=== PATIENT | female | born 1970 | race Caucasian/White ===

== ENCOUNTER → 2016-05-28 | Outpatient (REF) | payer OTHER ==
[~2016-05-28] MED LIST: ALBU17IN INH; ALLE10TA PO; ALLE25CA8 PO; CARA1TAB2 PO; OMEP40CA2 PO
== END ==
LOC: M SFHCCLAY 11:01
PROVIDERS: ATTEND Family Medicine
DX: L81.4 Other melanin hyperpigmentation (principal)

== ENCOUNTER → 2017-01-05 | Outpatient (CLI) | payer OTHER ==
[~2017-01-05] MED LIST changes: -CARA1TAB2 PO; +CARA1TAB6 PO
--- NOTE | 2017-01-05 09:40 | REP ---
BILATERAL FIRST DIGITS: Four views of bilateral first digits performed. There is no evidence of acute fracture, dislocation or intrinsic bone disease. Joint spaces appear unremarkable. IMPRESSION: Negative exam bilateral first digits. Signed by Farhan Mccarty MD 01/05/2017 05:08 P
== END ==
LOC: M WUC 08:31
PROVIDERS: ATTEND Physician Assistant
DX: S63.602A Unspecified sprain of left thumb, initial encounter (principal); S63.601A Unspecified sprain of right thumb, initial encounter; X58.XXXA Exposure to other specified factors, initial encounter; Y92.89 Other specified places as the place of occurrence of the external cause; Y93.89 Activity, other specified; Y99.8 Other external cause status

== ENCOUNTER → 2017-06-15 | Outpatient (CLI) | payer OTHER | LOC: M WUC 09:04 | DX: M54.5 Low back pain (principal) | CPT/HCPCS: 72110 ==

== ENCOUNTER 2017-06-30 09:03 | Emergency (ER) | payer OTHER | END 2017-06-30 11:03 | disposition home or self-care (01) | LOC: M ED 09:03 | DX: R11.2 Nausea with vomiting, unspecified (principal); R19.7 Diarrhea, unspecified; K21.9 Gastro-esophageal reflux disease without esophagitis; Z79.899 Other long term (current) drug therapy; Z98.890 Other specified postprocedural states | CPT/HCPCS: 74021 ==

== ENCOUNTER → 2017-10-13 | Outpatient (CLI) | payer BC ==
[2017-10-13 16:31] LABS: BASO # 0.1 10^3/uL (0.0-0.2); BASO % 0.7 % (0.0-1.0); EOS # 0.6 10^3/uL (0.0-0.50); EOS % 8.5 % (0.0-3.0); HEMOGLOBIN 13.2 g/dl (12.0-15.5); IMMATURE GRANULOCYTE % 0.1 % (0-3.0); LYMPH # 2.5 10^3/uL (1.5-4.5); LYMPH % 36.9 % (24.0-44.0); MEAN CORPUSCULAR HEMOGLOBIN 29.1 pg (27.0-33.0); MEAN CORPUSCULAR VOLUME 88.1 fl (80.0-96.0); MONO # 0.6 10^3/uL (0.0-0.8); MONO % 9.1 % (0.0-5.0); NEUTROPHILS % 44.7 % (36.0-66.0); PLATELET COUNT, AUTOMATED 250 10^3/uL (150-450); RED BLOOD COUNT 4.54 10^6/uL (4.00-5.40); RED CELL DISTRIBUTION WIDTH 12.5 % (11.5-14.5); WHITE BLOOD COUNT 6.7 10^3/uL (4.0-10.0)
[2017-10-13 17:06] LABS: ALBUMIN 4.1 GM/DL (3.2-5.2); ALBUMIN/GLOBULIN RATIO 1.24 (1.00-1.93); ALKALINE PHOSPHATASE 75 U/L (45-117); ALT/SGPT 33 U/L (12-78); ANION GAP 6 MEQ/L (8-16); AST/SGOT 20 U/L (7-37); BILIRUBIN,TOTAL 0.7 MG/DL (0.2-1.0); BLOOD UREA NITROGEN 16 MG/DL (7-18); CALCIUM LEVEL 9.5 MG/DL (8.5-10.1); CARBON DIOXIDE LEVEL 29 MEQ/L (21-32); CHLORIDE LEVEL 107 MEQ/L (98-107); CREATININE FOR GFR 0.83 MG/DL (0.55-1.30); FREE T4 0.98 NG/DL (0.76-1.46); GLOMERULAR FILTRATION RATE > 60.0 (>58); GLUCOSE, FASTING 89 MG/DL (70-100); SODIUM LEVEL 142 MEQ/L (136-145); TOTAL PROTEIN 7.4 GM/DL (6.4-8.2)
[2017-10-13 17:08] LABS: POTASSIUM SERUM 5.2 MEQ/L (3.5-5.1)
== END ==
LOC: M WUC 13:42
DX: R53.83 Other fatigue (principal)

== ENCOUNTER 2017-12-03 16:38 | Emergency (ER) | payer BC ==
[2017-12-03 17:19] LABS: BASO % 0.7 % (0.0-1.0); EOS # 0.2 10^3/uL (0.0-0.50); EOS % 3.6 % (0.0-3.0); HEMATOCRIT 41.5 % (36.0-47.0); HEMOGLOBIN 13.8 g/dl (12.0-15.5); IMMATURE GRANULOCYTE % 0.2 % (0-3.0); MEAN CORPUSCULAR HEMOGLOBIN 28.5 pg (27.0-33.0); MEAN CORPUSCULAR HGB CONC 33.3 g/dl (32.0-36.5); MEAN CORPUSCULAR VOLUME 85.7 fl (80.0-96.0); MONO # 0.4 10^3/uL (0.0-0.8); MONO % 7.3 % (0.0-5.0); NEUTROPHILS # 3.2 10^3/uL (1.8-7.7); NEUTROPHILS % 54.2 % (36.0-66.0); PLATELET COUNT, AUTOMATED 223 10^3/uL (150-450); RED BLOOD COUNT 4.84 10^6/uL (4.00-5.40); RED CELL DISTRIBUTION WIDTH 12.7 % (11.5-14.5); WHITE BLOOD COUNT 5.9 10^3/uL (4.0-10.0)
[2017-12-03 17:25] LABS: ALBUMIN 3.8 GM/DL (3.2-5.2); ALBUMIN/GLOBULIN RATIO 1.03 (1.00-1.93); ALKALINE PHOSPHATASE 88 U/L (45-117); ALT/SGPT 43 U/L (12-78); ANION GAP 11 MEQ/L (8-16); AST/SGOT 65 U/L (7-37); BILIRUBIN,DIRECT 0.3 MG/DL (0.0-0.2); BLOOD UREA NITROGEN 16 MG/DL (7-18); CALCIUM LEVEL 8.8 MG/DL (8.5-10.1); CARBON DIOXIDE LEVEL 24 MEQ/L (21-32); CHLORIDE LEVEL 104 MEQ/L (98-107); CREATININE FOR GFR 0.76 MG/DL (0.55-1.30); GLOMERULAR FILTRATION RATE > 60.0 (>58); GLUCOSE, FASTING 85 MG/DL (70-100); LIPASE 342 U/L (73-393); POTASSIUM SERUM 3.2 MEQ/L (3.5-5.1); SODIUM LEVEL 139 MEQ/L (136-145); TOTAL PROTEIN 7.5 GM/DL (6.4-8.2)
[2017-12-03 17:39] LABS: KETONE, URINE AUTO RFX NEGATIVE (NEGATIVE); LEUKOCYTE ESTERASE UR AUTO RFX NEGATIVE (NEGATIVE); MUCUS, URINE RFX SMALL (NEGATIVE); NITRITE, URINE AUTO RFX NEGATIVE (NEGATIVE); RBC, URINE AUTO RFX 0 /HPF (0-3); SPECIFIC GRAVITY UR AUTO RFX 1.006 (1.002-1.035); SQUAM EPITHELIAL CELL UR AURFX 0 /HPF (0-6); WBC, URINE AUTO RFX 0 /HPF (0-3)
[2017-12-03] MEDS ORDERED: ISOVUE-370 76% 100ML VIAL (Q9967) As Ordered (17:40)
[2017-12-03 17:46] LABS: CK-MB VALUE MASS 1.6 NG/ML (<3.6); CPK CREATINE PHOSPHOKINASE 97 U/L (26-192); MB/CK RELATIVE INDEX 1.64 (< OR =4); TROPONIN I < 0.02 NG/ML (< 0.10)
[2017-12-03] MEDS: POTASSIUM CHLORIDE 10 MEQ SR TABLET PO (18:08)
[2017-12-03] MEDS: GASTROGRAFIN SOLUTION 30ML PO ×2 (18:08→18:45)
[2017-12-03] MEDS: ONDANSETRON 4MG/2ML VIAL (J2405) IV (18:45)
== END 2017-12-03 20:26 | disposition home or self-care (01) ==
LOC: M ED 16:38
DX: R10.9 Unspecified abdominal pain (principal); M19.90 Unspecified osteoarthritis, unspecified site; R05 Cough; Z87.891 Personal history of nicotine dependence; Z79.899 Other long term (current) drug therapy
CPT/HCPCS: Q9963

== ENCOUNTER → 2017-12-15 | Outpatient (REF) | payer BC, MEDICAID ==
[2017-12-16 12:31] LABS: CONTROL LINE HPYORI INT CTR LINE PRESENT; H PYLORI QUALITATIVE IgG NEGATIVE (NEGATIVE)
== END ==
LOC: M SFHCCLAY 15:22
DX: R10.13 Epigastric pain (principal)
CPT/HCPCS: 86677

== ENCOUNTER → 2017-12-22 | Outpatient (CLI) | payer BC, MEDICAID | LOC: M RAD 08:04 | DX: K80.51 Calculus of bile duct without cholangitis or cholecystitis with obstruction (principal); R10.13 Epigastric pain; Z90.49 Acquired absence of other specified parts of digestive tract | CPT/HCPCS: A9537 ==

== ENCOUNTER → 2017-12-23 | Outpatient (CLI) | payer BC, MEDICAID | LOC: M RAD 08:48 | DX: K80.50 Calculus of bile duct without cholangitis or cholecystitis without obstruction (principal) | CPT/HCPCS: 74181 ==

== ENCOUNTER 2018-01-04 08:16 | Outpatient (REF) | payer MEDICAID | END 2018-01-05 | LOC: M SFHCCLAY 08:16 | DX: K80.20 Calculus of gallbladder without cholecystitis without obstruction (principal) ==

== ENCOUNTER → 2018-02-08 | Outpatient (CLI) | payer BC, MEDICAID | LOC: M WUC 15:18 | DX: M25.521 Pain in right elbow (principal) | CPT/HCPCS: 73080 ==

== ENCOUNTER → 2018-10-17 | Outpatient (CLI) | payer BC, MEDICAID ==
[~2018-10-17] MED LIST changes: +SING10TA32 PO; +ZYRT10CA PO
--- NOTE | 2018-10-17 15:21 | REP ---
Clinical: Cough and shortness of breath . Comparison: 06/30/2017 . Technique: PA and lateral. Findings: The mediastinum and cardiac silhouette are normal. Surgical clips at the right suprahilar region remains stable along with suspected postsurgical changes involving the medial right upper lung zone. The lung ventura are without acute consolidation, effusion, or pneumothorax. The skeletal structures are intact and normal. Impression: 1. No acute cardiopulmonary process. 2. Stable postsurgical changes involving the right hemithorax.
== END ==
LOC: M CLY 14:45
PROVIDERS: ATTEND Family Medicine
DX: R06.02 Shortness of breath (principal); R05 Cough

== ENCOUNTER 2018-12-22 20:22 | Emergency (ER) | payer BC, MEDICAID ==
[~2018-12-22] VITALS: Ht 162.6 cm; Wt 82.9 kg
[2018-12-22] MEDS ORDERED: TOPI25TA10 (20:32)
[2018-12-22] MEDS ORDERED: MONT10TA2 (20:32)
[2018-12-22] MEDS ORDERED: VENTAER (20:32)
[2018-12-22 23:00] VITALS: BP 102/64
[2018-12-22] MEDS ORDERED: valACYclovir HCL 500 MG TAB PO ONE (23:15)
[2018-12-22] MEDS ORDERED: VALA1TAB2 PO (23:16)
[2018-12-22] MEDS ORDERED: NAPR-885 PO (23:17)
== END 2018-12-22 23:41 | disposition home or self-care (01) ==
LOC: M ED 20:22
DX: B02.9 Zoster without complications (principal); J34.0 Abscess, furuncle and carbuncle of nose; J30.2 Other seasonal allergic rhinitis; Z79.899 Other long term (current) drug therapy

== ENCOUNTER → 2019-01-09 | Outpatient (CLI) | payer BC ==
[~2019-01-09] MED LIST changes: +MONT10TA2; +NAPR-885 PO; +TOPI25TA10; +VALA1TAB2 PO; +VENTAER
--- NOTE | 2019-01-09 09:51 | REP ---
Right foot four views : There is no fracture or dislocation. Mineralization and joint spaces are normal. There are no calcifications or foreign bodies. The base of the fifth digit metacarpal is unremarkable. There is a calcaneal plantar are spur. Impression: The base of the fifth digit metacarpal is unremarkable. There is a calcaneal plantar spur. Otherwise, negative right foot . Electronically Signed by Frahan Fam MD 01/09/2019 09:43 A
== END ==
LOC: M CLY 08:33
PROVIDERS: ATTEND Family Medicine
DX: M77.9 Enthesopathy, unspecified (principal)

== ENCOUNTER → 2019-05-31 | Outpatient (CLI) | payer BC, MEDICAID ==
[~2019-05-31] MED LIST changes: -ALLE10TA PO; -OMEP40CA2 PO; +OMEP40CA97 PO; -VALA1TAB2 PO; +VALA1TAB64 PO; +[UNRECOGNIZED DRUG - CODE] PO
--- NOTE | 2019-05-31 14:43 | REPMRS ---
Patient History The patient states she has not had a clinical breast exam in over a year. Patient is postmenopausal. Family history of breast cancer in maternal uncle, colorectal cancer in maternal uncle. Digital Woman Screen Mammo: May 31, 2019 - Exam #: [id number] Bilateral CC and MLO view(s) were taken. Technologist: Rosy Pedraza, Technologist Prior study comparison: January 10, 2009, bilateral mammogram, performed at [facility]. FINDINGS: The breast tissue is heterogeneously dense. This may lower the sensitivity of mammography. There is a moderate amount of heterogeneously dense fibroglandular tissue which is fairly symmetric. There is no interval development of dominant mass, architectural distortion, or grouped microcalcification typical of malignancy. There has been no change in the appearance of the mammogram from the prior studies. 3-D tomosynthesis shows no additional findings. Assessment: BI-RADS/ACR category 1 mammogram. Negative Mammogram. Recommendation Routine screening mammogram of both breasts in 1 year (for women over age 40). This patient's Lifetime Breast Cancer RIsk is estimated at 8.4 %. This mammogram was interpreted with the aid of an FDA-approved computer-aided dectection system. Electronically Signed By: Humberto Pat MD 05/31/19 0098
== END ==
LOC: M WHC 11:27
PROVIDERS: ATTEND Family Medicine
DX: Z12.31 Encounter for screening mammogram for malignant neoplasm of breast (principal)

== ENCOUNTER → 2019-11-03 | Outpatient (CLI) | payer OTHER ==
[~2019-11-03] MED LIST changes: -MONT10TA2; +MONT10TA4 PO; +OMEP1CAP73 PO; +TOPI50TA9 PO; +VALA1TAB5 PO; -VALA1TAB64 PO
== END ==
LOC: M LABSMTC 09:12
PROVIDERS: ATTEND Anesthesiology
DX: Z03.818 Encounter for observation for suspected exposure to other biological agents ruled out (principal); Z11.59 Encounter for screening for other viral diseases
CPT/HCPCS: C9803; U0003

== ENCOUNTER 2019-11-06 08:35 | Day surgery (SDC) | payer BC, MEDICAID, OTHER ==
[~2019-11-06] VITALS: Ht 162.6 cm; Wt 87.5 kg
[~2019-11-06 08:35] MED LIST changes: +MONT10TA10 PO; -MONT10TA4 PO; +NS 1,000 ML IV ONE
--- NOTE | 2019-11-06 10:48 | ROOR ---
Patient Name: Dorita Mckeon Procedure Date: 11/06/2019 10:27 AM Date of : 1970 Age: 49 Room: [facility] Gender: Female Note Status: Finalized Procedure: Colonoscopy Indications: Suspected irritable bowel syndrome, Irritable bowel syndrome with constipation Providers: Juan AUGUSTIN MD Referring MD: Will Escobar MD Requesting Provider: Medicines: Monitored Anesthesia Care Complications: No immediate complications. Procedure: Pre-Anesthesia Assessment: - The heart rate, respiratory rate, oxygen saturations, blood pressure, adequacy of pulmonary ventilation, and response to care were monitored throughout the procedure. The Colonoscope was introduced through the anus and advanced to 10 cm into the ileum. The colonoscopy was performed without difficulty. The patient tolerated the procedure well. The quality of the bowel preparation was good. Findings: The perianal and digital rectal examinations were normal. The colon (entire examined portion) appeared normal. The terminal ileum appeared normal. Hemorrhoids were found during retroflexion. The hemorrhoids were moderate. Impression: - Internal Hemorrhoids. - The colon is normal. - The terminal ileum is normal. - No specimens collected. Recommendation: - Continue present medications. - Return to referring physician as previously scheduled. Juan Augustin MD Juan AUGUSTIN MD 11/06/2019 10:48:11 AM Electronically signed by Juan AUGUSTIN MD Number of Addenda: 0 Note Initiated On: 11/06/2019 10:27 AM Estimated Blood Loss: Estimated blood loss: none.
[2019-11-06 11:05] VITALS: BP 127/72
== END 2019-11-06 11:29 | disposition home or self-care (01) ==
LOC: M OPP 08:35
PROVIDERS: ATTEND Internal Medicine Gastroenterology
DX: K64.9 Unspecified hemorrhoids (principal); K21.9 Gastro-esophageal reflux disease without esophagitis; K58.1 Irritable bowel syndrome with constipation

== ENCOUNTER → 2019-11-21 | Outpatient (REF) | payer OTHER, MEDICAID ==
[~2019-11-21] MED LIST changes: -MONT10TA10 PO; +MONT10TA4 PO; -NS 1,000 ML IV ONE
[2019-11-21 12:17] LABS: HEMATOCRIT 41.4 % (36.0-47.0); HEMOGLOBIN 13.7 g/dl (12.0-15.5); MEAN CORPUSCULAR HEMOGLOBIN 29.4 pg (27.0-33.0); MEAN CORPUSCULAR HGB CONC 33.1 g/dl (32.0-36.5); MEAN CORPUSCULAR VOLUME 88.8 fl (80.0-96.0); PLATELET COUNT, AUTOMATED 262 10^3/uL (150-450); RED BLOOD COUNT 4.66 10^6/uL (4.00-5.40); WHITE BLOOD COUNT 6.2 10^3/uL (4.0-10.0)
[2019-11-21 12:31] LABS: ALT/SGPT 26 U/L (12-78); BILIRUBIN,TOTAL 0.6 MG/DL (0.2-1.0); BLOOD UREA NITROGEN 25 MG/DL (7-18); CALCIUM LEVEL 9.1 MG/DL (8.5-10.1); CARBON DIOXIDE LEVEL 23 MEQ/L (21-32); CHLORIDE LEVEL 113 MEQ/L (98-107); CHOLESTEROL LEVEL 205 MG/DL (<200); CHOLESTEROL RISK RATIO 3.796 (<5); CREATININE FOR GFR 0.83 MG/DL (0.55-1.30); FREE T4 0.99 NG/DL (0.76-1.46); GLOMERULAR FILTRATION RATE > 60.0 (>51); GLUCOSE, FASTING 95 MG/DL (70-100); HDL CHOLESTEROL 54 MG/DL (>40); LDL CHOLESTEROL 138 MG/DL (<100); NON-HDL-C 151 MG/DL; POTASSIUM SERUM 4.1 MEQ/L (3.5-5.1); SODIUM LEVEL 144 MEQ/L (136-145); TOTAL PROTEIN 6.7 GM/DL (6.4-8.2); TRIGLYCERIDES LEVEL 67 MG/DL (<150)
== END ==
LOC: M SFHCCLAY 08:28
PROVIDERS: ATTEND Family Medicine
DX: R53.82 Chronic fatigue, unspecified (principal); E78.00 Pure hypercholesterolemia, unspecified

== ENCOUNTER → 2019-11-21 | Outpatient (CLI) | payer BC, OTHER ==
--- NOTE | 2019-11-21 09:02 | REP ---
Left hip: Two views. History: Piriformis muscle pain. Findings: AP and frog-leg views of the left hip demonstrate bilateral Essure metallic tubal occlusion devices in the pelvis. Femoral head is smooth and rounded joint spaces preserved. The left hemipelvis appears intact. Periarticular soft tissues are unremarkable. Impression: Status post Essure tubal occlusion. Otherwise negative left hip radiographs. Electronically Signed by Michele Pat MD 11/21/2019 08:53 A
== END ==
LOC: M CLY 08:34
PROVIDERS: ATTEND Family Medicine
DX: M79.18 Myalgia, other site (principal)

== ENCOUNTER → 2020-06-05 | Outpatient (CLI) | payer SELFPAY ==
[~2020-06-05] MED LIST changes: -MONT10TA4 PO; +MONT5TAB2 PO
== END ==
LOC: M LABSMTC 13:11
PROVIDERS: ATTEND Pediatrics
DX: Z20.822 Contact with and (suspected) exposure to COVID-19 (principal)

== ENCOUNTER → 2020-07-29 | Outpatient (REF) | payer MEDICAID, OTHER ==
[~2020-07-29] MED LIST changes: +MONT10TA10 PO; -MONT5TAB2 PO
[2020-07-29 16:23] LABS: BASO % 0.6 % (0.0-1.0); EOS # 0.3 10^3/uL (0.0-0.5); EOS % 4.7 % (0.0-3.0); HEMATOCRIT 41.2 % (36.0-47.0); HEMOGLOBIN 13.2 g/dl (12.0-15.5); LYMPH # 2.5 10^3/uL (1.5-5.0); LYMPH % 34.5 % (24.0-44.0); MEAN CORPUSCULAR HEMOGLOBIN 28.5 pg (27.0-33.0); MONO # 0.5 10^3/uL (0.0-0.8); MONO % 7.3 % (2.0-8.0); NEUTROPHILS # 3.8 10^3/uL (1.5-8.5); NEUTROPHILS % 52.6 % (36.0-66.0); PLATELET COUNT, AUTOMATED 277 10^3/uL (150-450); RED BLOOD COUNT 4.63 10^6/uL (4.00-5.40); WHITE BLOOD COUNT 7.2 10^3/uL (4.0-10.0)
[2020-07-29 16:46] LABS: ALBUMIN 4.5 GM/DL (3.2-5.2); ALT/SGPT 24 U/L (12-78); BILIRUBIN,TOTAL 0.7 MG/DL (0.2-1.0); BLOOD UREA NITROGEN 26 MG/DL (7-18); CALCIUM LEVEL 9.8 MG/DL (8.5-10.1); CARBON DIOXIDE LEVEL 27 MEQ/L (21-32); CHLORIDE LEVEL 109 MEQ/L (98-107); CREATININE FOR GFR 0.75 MG/DL (0.55-1.30); FREE T4 1.03 NG/DL (0.76-1.46); GLOMERULAR FILTRATION RATE > 60.0 (>51); GLUCOSE, FASTING 87 MG/DL (70-100); POTASSIUM SERUM 4.6 MEQ/L (3.5-5.1); SODIUM LEVEL 140 MEQ/L (136-145); TOTAL PROTEIN 7.2 GM/DL (6.4-8.2)
== END ==
LOC: M SFHCCLAY 13:52
PROVIDERS: ATTEND Family Medicine
DX: R53.82 Chronic fatigue, unspecified (principal); Z86.16 Personal history of COVID-19

== ENCOUNTER → 2021-04-14 | Outpatient (REF) | payer OTHER ==
[~2021-04-14] MED LIST changes: -MONT10TA10 PO; +MONT10TA97 PO; +OMEP40CA4 PO; -OMEP40CA97 PO
== END ==
LOC: M SFHCCLAY 14:31
PROVIDERS: ATTEND Family Medicine
DX: B34.9 Viral infection, unspecified (principal)

== ENCOUNTER → 2021-05-07 | Outpatient (CLI) | payer OTHER ==
[~2021-05-07] MED LIST changes: +MONT10TA10 PO; -MONT10TA97 PO
== END ==
LOC: M LABSMTC 09:10
PROVIDERS: ATTEND Pediatrics
DX: Z11.52 Encounter for screening for COVID-19 (principal)

== ENCOUNTER 2021-05-08 09:28 | Outpatient (CLI) | payer OTHER ==
[~2021-05-08] VITALS: Ht 162.6 cm; Wt 68.0 kg
[~2021-05-08 09:28] MED LIST changes: +ALBUTEROL 90 MCG/ACT 8GM HFA INHALER INH PRN; +ALBUTEROL SULFATE 2.5 MG/0.5 ML INH NEB SOLN INH PRN; +EPINEPHrine INJ 1 MG/ML 1ML AMP IM PRN; -MONT10TA10 PO; +MONT10TA97 PO; +NS 1,000 ML IV SCH; +diphenhydrAMINE 50MG/ML VIAL (J1200) IV PRN; +methylPREDNISolone 125MG 2ML VIAL IV PRN
[2021-05-08 09:57] VITALS: BP 158/73
[2021-05-08] MEDS ORDERED: CASIRIVIMAB/IMDEVIMAB 1,200 MG in NS 250 ML IV ONE (10:00)
[2021-05-08 10:27] VITALS: BP 130/79
[2021-05-08 10:57] VITALS: BP 138/71
[2021-05-08 11:57] VITALS: BP 141/75
== END 2021-05-08 11:57 | disposition home or self-care (01) ==
LOC: M OPCLI4PR 09:28
PROVIDERS: ATTEND Family Medicine
DX: U07.1 COVID-19 (principal)

== ENCOUNTER → 2021-05-22 | Outpatient (RCR) | payer OTHER ==
[~2021-05-22] MED LIST changes: -ALBUTEROL 90 MCG/ACT 8GM HFA INHALER INH PRN; -ALBUTEROL SULFATE 2.5 MG/0.5 ML INH NEB SOLN INH PRN; -EPINEPHrine INJ 1 MG/ML 1ML AMP IM PRN; +MONT10TA10 PO; -MONT10TA97 PO; -NS 1,000 ML IV SCH; -diphenhydrAMINE 50MG/ML VIAL (J1200) IV PRN; -methylPREDNISolone 125MG 2ML VIAL IV PRN
== END ==
LOC: M PT 04-24 07:01
PROVIDERS: ATTEND Orthopaedic Surgery Sports Medicine
DX: M76.30 Iliotibial band syndrome, unspecified leg (principal); M25.552 Pain in left hip; M70.60 Trochanteric bursitis, unspecified hip

== ENCOUNTER 2021-06-19 09:15 | Outpatient (RCR) | payer OTHER ==
[~2021-06-19 09:15] MED LIST changes: -MONT10TA10 PO; +MONT10TA97 PO
== END 2021-06-22 ==
LOC: M PT 09:15
PROVIDERS: ATTEND Orthopaedic Surgery
DX: M76.30 Iliotibial band syndrome, unspecified leg (principal); M25.552 Pain in left hip; M70.60 Trochanteric bursitis, unspecified hip

== ENCOUNTER 2021-06-24 08:29 | Outpatient (RCR) | payer OTHER | END 2021-07-20 | LOC: M PT 08:29 | PROVIDERS: ATTEND Orthopaedic Surgery | DX: M76.30 Iliotibial band syndrome, unspecified leg (principal); M25.552 Pain in left hip ==

== ENCOUNTER → 2021-09-03 | Outpatient (REF) | payer OTHER ==
[2021-09-03 11:30] LABS: BASO # 0.1 10^3/uL (0.0-0.2); BASO % 1.1 % (0.0-1.0); EOS # 0.4 10^3/uL (0.0-0.5); EOS % 6.6 % (0.0-3.0); HEMATOCRIT 41.4 % (36.0-47.0); HEMOGLOBIN 13.8 g/dl (12.0-15.5); LYMPH # 2.2 10^3/uL (1.5-5.0); LYMPH % 39.6 % (24.0-44.0); MEAN CORPUSCULAR HEMOGLOBIN 29.4 pg (27.0-33.0); MEAN CORPUSCULAR HGB CONC 33.3 g/dl (32.0-36.5); MEAN CORPUSCULAR VOLUME 88.1 fl (80.0-96.0); MONO # 0.5 10^3/uL (0.0-0.8); MONO % 9.3 % (2.0-8.0); NEUTROPHILS # 2.4 10^3/uL (1.5-8.5); NEUTROPHILS % 43.2 % (36.0-66.0); PLATELET COUNT, AUTOMATED 263 10^3/uL (150-450); WHITE BLOOD COUNT 5.5 10^3/uL (4.0-10.0)
[2021-09-03 12:14] LABS: ERYTHROCYTE SEDIMENTATION RATE 9 mm/hr (0-30)
[2021-09-03 12:27] LABS: ALBUMIN 3.9 GM/DL (3.2-5.2); ALT/SGPT 38 U/L (12-78); BILIRUBIN,TOTAL 0.9 MG/DL (0.2-1.0); BLOOD UREA NITROGEN 18 MG/DL (7-18); CALCIUM LEVEL 9.7 MG/DL (8.5-10.1); CARBON DIOXIDE LEVEL 25 MEQ/L (21-32); CHLORIDE LEVEL 111 MEQ/L (98-107); CHOLESTEROL LEVEL 240 MG/DL (<200); CHOLESTEROL RISK RATIO 3.428 (<5); CREATININE FOR GFR 0.81 MG/DL (0.55-1.30); FREE T4 0.93 NG/DL (0.76-1.46); GLOMERULAR FILTRATION RATE > 60.0 (>51); GLUCOSE, FASTING 89 MG/DL (70-100); HDL CHOLESTEROL 70 MG/DL (>40); LDL CHOLESTEROL 160 MG/DL (<100); NON-HDL-C 170 MG/DL; POTASSIUM SERUM 4.7 MEQ/L (3.5-5.1); SODIUM LEVEL 142 MEQ/L (136-145); TRIGLYCERIDES LEVEL 51 MG/DL (<150)
== END ==
LOC: M SFHCCLAY 09:30
PROVIDERS: ATTEND Family Medicine
DX: R53.82 Chronic fatigue, unspecified (principal); E78.00 Pure hypercholesterolemia, unspecified; R09.81 Nasal congestion; J30.81 Allergic rhinitis due to animal (cat) (dog) hair and dander

== ENCOUNTER 2021-12-25 14:57 | Inpatient (IN) | payer OTHER ==
[~2021-12-25] VITALS: Ht 162.6 cm; Wt 77.3 kg
[2021-12-25] MEDS ORDERED: NS 1,000 ML IV ONE (15:20)
[2021-12-25] MEDS ORDERED: NAPR-849 PO (15:25)
[2021-12-25 15:46] LABS: BASO % 0.6 % (0.0-1.0); EOS # 0.2 10^3/uL (0.0-0.5); EOS % 3.3 % (0.0-3.0); HEMATOCRIT 38.8 % (36.0-47.0); HEMOGLOBIN 13.1 g/dl (12.0-15.5); LYMPH # 1.4 10^3/uL (1.5-5.0); LYMPH % 26.4 % (24.0-44.0); MEAN CORPUSCULAR HEMOGLOBIN 29.9 pg (27.0-33.0); MEAN CORPUSCULAR HGB CONC 33.8 g/dl (32.0-36.5); MEAN CORPUSCULAR VOLUME 88.6 fl (80.0-96.0); MONO # 0.5 10^3/uL (0.0-0.8); MONO % 9.1 % (2.0-8.0); NEUTROPHILS # 3.1 10^3/uL (1.5-8.5); NEUTROPHILS % 60.4 % (36.0-66.0); PLATELET COUNT, AUTOMATED 221 10^3/uL (150-450); RED BLOOD COUNT 4.38 10^6/uL (4.00-5.40); WHITE BLOOD COUNT 5.2 10^3/uL (4.0-10.0)
[2021-12-25 16:27] LABS: CK-MB VALUE MASS < 1.0 NG/ML (<3.6); CPK CREATINE PHOSPHOKINASE 63 U/L (26-192); MB/CK RELATIVE INDEX 1.59 (< OR =4)
[2021-12-25 16:33] LABS: ALBUMIN 3.9 GM/DL (3.2-5.2); ALT/SGPT 33 U/L (12-78); BILIRUBIN,DIRECT 0.2 MG/DL (0.0-0.2); BILIRUBIN,TOTAL 0.7 MG/DL (0.2-1.0); BLOOD UREA NITROGEN 16 MG/DL (7-18); CARBON DIOXIDE LEVEL 25 MEQ/L (21-32); CHLORIDE LEVEL 111 MEQ/L (98-107); CREATININE FOR GFR 0.96 MG/DL (0.55-1.30); FREE T4 1.17 NG/DL (0.76-1.46); GLOMERULAR FILTRATION RATE > 60.0 (>51); GLUCOSE, FASTING 87 MG/DL (70-100); LIPASE 105 U/L (73-393); MAGNESIUM LEVEL 2.5 MG/DL (1.8-2.4); POTASSIUM SERUM 3.9 MEQ/L (3.5-5.1); SODIUM LEVEL 140 MEQ/L (136-145); TOTAL PROTEIN 6.8 GM/DL (6.4-8.2)
[2021-12-25] MEDS ORDERED: ISOVUE-370 76% 100ML VIAL As Ordered ONE (16:37)
[2021-12-25 17:54] LABS: CK-MB VALUE MASS < 1.0 NG/ML (<3.6); CPK CREATINE PHOSPHOKINASE 73 U/L (26-192); MB/CK RELATIVE INDEX 1.37 (< OR =4)
[2021-12-25 19:22] LABS: RSV AMPLIFICATION NEGATIVE (NEGATIVE)
[2021-12-25] MEDS ORDERED: ACETAMINOPHEN TAB 650MG DOSE (2X325MG) PO PRN (20:10)
[2021-12-25] MEDS ORDERED: GI COCKTAIL 50ML BTL(HYOSCYAMINE/MAALOX/LIDOCAINE VISCOUS)(1:3:1) PO ONE (20:10)
[2021-12-25] MEDS ORDERED: BUPR300T92 PO (20:37)
[2021-12-25] MEDS ORDERED: NAPR-885 PO (20:37)
[2021-12-25] MEDS ORDERED: HOME MED LIST COMPLETE! XX SCH (20:40)
[2021-12-25] MEDS: DOCUSATE SODIUM 100MG CAPSULE PO SCH (21:00)
[2021-12-25 21:37] VITALS: BP 159/84
[2021-12-25 23:09] LABS: CK-MB VALUE MASS < 1.0 NG/ML (<3.6); CPK CREATINE PHOSPHOKINASE 59 U/L (26-192); MB/CK RELATIVE INDEX 1.69 (< OR =4)
[2021-12-26] MEDS: TOPIRAMATE (TopAMAX) 25 MG TAB PO SCH ×3 (00:44→20:41)
[2021-12-26] MEDS ORDERED: MORPHINE 2 MG/ML 1ML VIAL IV ONE ×2 (02:45→03:15)
[2021-12-26 03:00] VITALS: BP 160/80
[2021-12-26] MEDS ORDERED: MORPHINE 2 MG/ML 1ML VIAL IV PRN (03:15)
[2021-12-26] MEDS ORDERED: HYDROMORPHONE HCL 0.5 MG/ 0.5 ML SYRINGE (J1170 PER 1) IV ONE (04:00)
[2021-12-26] MEDS ORDERED: HYDROMORPHONE HCL 0.5 MG/ 0.5 ML SYRINGE (J1170 PER 1) IV PRN (04:50)
[2021-12-26 04:51] LABS: HEMATOCRIT 39.2 % (36.0-47.0); HEMOGLOBIN 13.2 g/dl (12.0-15.5); MEAN CORPUSCULAR HEMOGLOBIN 29.7 pg (27.0-33.0); MEAN CORPUSCULAR HGB CONC 33.7 g/dl (32.0-36.5); MEAN CORPUSCULAR VOLUME 88.3 fl (80.0-96.0); PLATELET COUNT, AUTOMATED 226 10^3/uL (150-450); RED BLOOD COUNT 4.44 10^6/uL (4.00-5.40)
[2021-12-26 05:08] LABS: ERYTHROCYTE SEDIMENTATION RATE 7 mm/hr (0-30)
[2021-12-26 05:27] LABS: ALBUMIN 3.7 GM/DL (3.2-5.2); ALT/SGPT 100 U/L (12-78); BILIRUBIN,TOTAL 0.9 MG/DL (0.2-1.0); BLOOD UREA NITROGEN 13 MG/DL (7-18); CALCIUM LEVEL 8.7 MG/DL (8.5-10.1); CARBON DIOXIDE LEVEL 21 MEQ/L (21-32); CHLORIDE LEVEL 114 MEQ/L (98-107); CREATININE FOR GFR 0.76 MG/DL (0.55-1.30); GLOMERULAR FILTRATION RATE > 60.0 (>51); GLUCOSE, FASTING 141 MG/DL (70-100); LDH LACTATE DEHYDROGENASE 277 U/L (84-246); LIPASE 95 U/L (73-393); POTASSIUM SERUM 3.7 MEQ/L (3.5-5.1); SODIUM LEVEL 140 MEQ/L (136-145); TOTAL PROTEIN 6.8 GM/DL (6.4-8.2)
[2021-12-26] MEDS ORDERED: D5W/0.9% SODIUM CHLORIDE 1,000 ML IV SCH (05:45)
[2021-12-26 06:00] VITALS: BP 142/74
[2021-12-26] MEDS: LevoFLOXacin IV 750 MG in IV 1 EA IV SCH (06:16)
[2021-12-26] MEDS: DOCUSATE SODIUM 100MG CAPSULE PO SCH ×2 (08:30→20:41)
[2021-12-26] MEDS ORDERED: MIRALAX *UNIT DOSE* 17GM PACKET PO SCH (09:00)
[2021-12-26] MEDS ORDERED: PANTOPRAZOLE 40MG VIAL IV SCH (09:00)
[2021-12-26] MEDS ORDERED: MONTELUKAST 10 MG TAB PO SCH (09:00)
[2021-12-26] MEDS ORDERED: buPROPion **XL** TABLET 150MG (WELLBUTRIN XL) PO SCH (09:00)
[2021-12-26] MEDS ORDERED: OMEPRAZOLE 20MG CAP PO SCH (09:00)
[2021-12-26 10:00] VITALS: BP 138/80
[2021-12-26] MEDS ORDERED: GI COCKTAIL 50ML BTL(HYOSCYAMINE/MAALOX/LIDOCAINE VISCOUS)(1:3:1) PO ONE (14:00)
[2021-12-26 15:00] VITALS: BP 139/80
[2021-12-26] MEDS: MIRALAX *UNIT DOSE* 17GM PACKET PO SCH (15:03)
[2021-12-26] MEDS: ENOXAPARIN 40MG/0.4ML SYRINGE (J1650 PER 10MG) SC SCH (15:04)
[2021-12-26] MEDS: SENNA 8.6 MG TAB (SENOKOT) PO SCH (15:04)
[2021-12-26 18:00] VITALS: BP 141/76
[2021-12-26] MEDS: PANTOPRAZOLE 40MG TAB (PROTONIX) PO SCH (20:41)
[2021-12-26 22:00] VITALS: BP 132/71
[2021-12-27 01:42] VITALS: BP 109/68
[2021-12-27 05:30] VITALS: BP 110/67
[2021-12-27] MEDS: LevoFLOXacin IV 750 MG in IV 1 EA IV SCH (05:56)
[2021-12-27 06:07] LABS: HEMATOCRIT 40.8 % (36.0-47.0); HEMOGLOBIN 13.1 g/dl (12.0-15.5); MEAN CORPUSCULAR HEMOGLOBIN 29.4 pg (27.0-33.0); MEAN CORPUSCULAR HGB CONC 32.1 g/dl (32.0-36.5); MEAN CORPUSCULAR VOLUME 91.7 fl (80.0-96.0); PLATELET COUNT, AUTOMATED 196 10^3/uL (150-450); RED BLOOD COUNT 4.45 10^6/uL (4.00-5.40)
[2021-12-27 06:50] LABS: ALBUMIN 3.5 GM/DL (3.2-5.2); ALT/SGPT 345 U/L (12-78); BILIRUBIN,TOTAL 0.7 MG/DL (0.2-1.0); BLOOD UREA NITROGEN 10 MG/DL (7-18); CALCIUM LEVEL 8.9 MG/DL (8.5-10.1); CARBON DIOXIDE LEVEL 24 MEQ/L (21-32); CHLORIDE LEVEL 113 MEQ/L (98-107); CREATININE FOR GFR 0.89 MG/DL (0.55-1.30); GLOMERULAR FILTRATION RATE > 60.0 (>51); GLUCOSE, FASTING 88 MG/DL (70-100); POTASSIUM SERUM 4.2 MEQ/L (3.5-5.1); SODIUM LEVEL 142 MEQ/L (136-145); TOTAL PROTEIN 6.5 GM/DL (6.4-8.2)
[2021-12-27 08:40] LABS: INR 0.96; PROTHROMBIN TIME 13.2 SECONDS (12.7-14.5)
[2021-12-27] MEDS: ENOXAPARIN 40MG/0.4ML SYRINGE (J1650 PER 10MG) SC SCH (09:47)
[2021-12-27] MEDS: PANTOPRAZOLE 40MG TAB (PROTONIX) PO SCH ×2 (09:48→20:05)
[2021-12-27] MEDS: SENNA 8.6 MG TAB (SENOKOT) PO SCH (09:48)
[2021-12-27] MEDS: MIRALAX *UNIT DOSE* 17GM PACKET PO SCH (09:48)
[2021-12-27] MEDS: TOPIRAMATE (TopAMAX) 25 MG TAB PO SCH ×2 (09:48→20:04)
[2021-12-27] MEDS: DOCUSATE SODIUM 100MG CAPSULE PO SCH ×2 (09:48→20:04)
[2021-12-27 10:00] VITALS: BP 133/80
[2021-12-27 14:00] VITALS: BP 135/79
[2021-12-27 22:00] VITALS: BP 128/81
[2021-12-28 02:00] VITALS: BP 100/55
[2021-12-28 06:00] VITALS: BP 145/74
[2021-12-28 06:23] LABS: HEMATOCRIT 42.9 % (36.0-47.0); HEMOGLOBIN 14.1 g/dl (12.0-15.5); MEAN CORPUSCULAR HEMOGLOBIN 29.8 pg (27.0-33.0); MEAN CORPUSCULAR HGB CONC 32.9 g/dl (32.0-36.5); MEAN CORPUSCULAR VOLUME 90.7 fl (80.0-96.0); PLATELET COUNT, AUTOMATED 228 10^3/uL (150-450); RED BLOOD COUNT 4.73 10^6/uL (4.00-5.40); WHITE BLOOD COUNT 5.6 10^3/uL (4.0-10.0)
[2021-12-28 06:51] LABS: ALBUMIN 3.8 GM/DL (3.2-5.2); BILIRUBIN,TOTAL 0.8 MG/DL (0.2-1.0); CALCIUM LEVEL 9.5 MG/DL (8.5-10.1); CREATININE FOR GFR 1.03 MG/DL (0.55-1.30); GLOMERULAR FILTRATION RATE 59.7 (>51); POTASSIUM SERUM 4.3 MEQ/L (3.5-5.1); TOTAL PROTEIN 6.9 GM/DL (6.4-8.2)
[2021-12-28] MEDS: PANTOPRAZOLE 40MG TAB (PROTONIX) PO SCH (09:16)
[2021-12-28] MEDS: DOCUSATE SODIUM 100MG CAPSULE PO SCH (09:16)
[2021-12-28] MEDS: ENOXAPARIN 40MG/0.4ML SYRINGE (J1650 PER 10MG) SC SCH (09:17)
[2021-12-28] MEDS: MIRALAX *UNIT DOSE* 17GM PACKET PO SCH (09:17)
[2021-12-28] MEDS: SENNA 8.6 MG TAB (SENOKOT) PO SCH (09:17)
[2021-12-28] MEDS: TOPIRAMATE (TopAMAX) 25 MG TAB PO SCH (09:17)
[2021-12-28 10:00] VITALS: BP 117/72
[2021-12-28 13:21] LABS: VITAMIN B12 LEVEL 997 PG/ML (247-911)
[2021-12-28 13:32] LABS: HEPATITIS B SURFACE ANTIGEN NEGATIVE (NEGATIVE)
[2021-12-28 13:59] LABS: HEPATITIS B CORE ANTIBODY IGM NEGATIVE (NEGATIVE)
[2021-12-28 14:00] VITALS: BP 119/74
== END 2021-12-28 15:09 | disposition home or self-care (01) | DRG 204 ==
LOC: M ED 14:57 → EDBD 14:57 → M ED INP 14:58 → M MSPAV 21:37 → OBSVTOIN 12-27 16:58
PROVIDERS: ADMIT Internal Medicine; ATTEND Internal Medicine
DX: R55 Syncope and collapse (principal); G93.5 Compression of brain; K21.9 Gastro-esophageal reflux disease without esophagitis; R51.9 Headache, unspecified; F32.A Depression, unspecified; R53.1 Weakness; K44.9 Diaphragmatic hernia without obstruction or gangrene; K59.00 Constipation, unspecified; R74.01 Elevation of levels of liver transaminase levels; R91.8 Other nonspecific abnormal finding of lung field; Z90.49 Acquired absence of other specified parts of digestive tract; Z87.891 Personal history of nicotine dependence; Z79.899 Other long term (current) drug therapy

== ENCOUNTER → 2022-02-01 | Outpatient (CLI) | payer OTHER ==
[~2022-02-01] MED LIST changes: +BUPR300T92 PO; +NAPR-849 PO
[2022-02-01 16:54] LABS: ALBUMIN 3.9 GM/DL (3.2-5.2); ALT/SGPT 34 U/L (12-78); BILIRUBIN,DIRECT < 0.1 MG/DL (0.0-0.2); BILIRUBIN,TOTAL 0.5 MG/DL (0.2-1.0); TOTAL PROTEIN 7.1 GM/DL (6.4-8.2)
== END ==
LOC: M LAB 15:10 → M PLALAB 15:10
PROVIDERS: ATTEND Internal Medicine Cardiovascular Disease
DX: R74.8 Abnormal levels of other serum enzymes (principal)

== ENCOUNTER → 2022-03-25 | Outpatient (CLI) | payer OTHER | LOC: M PLARAD 03-19 09:03 | PROVIDERS: ATTEND Neurological Surgery | DX: R51.9 Headache, unspecified (principal) ==

== ENCOUNTER → 2022-04-14 | Outpatient (REF) | payer OTHER ==
[2022-04-14 17:07] LABS: HEMATOCRIT 41.9 % (36.0-47.0); HEMOGLOBIN 13.3 g/dl (12.0-15.5); MEAN CORPUSCULAR HEMOGLOBIN 28.7 pg (27.0-33.0); MEAN CORPUSCULAR HGB CONC 31.7 g/dl (32.0-36.5); MEAN CORPUSCULAR VOLUME 90.5 fl (80.0-96.0); PLATELET COUNT, AUTOMATED 263 10^3/uL (150-450); RED BLOOD COUNT 4.63 10^6/uL (4.00-5.40)
[2022-04-14 18:01] LABS: ALT/SGPT 56 U/L (7.0-40); BILIRUBIN,TOTAL 0.5 MG/DL (0.3-1.2); BLOOD UREA NITROGEN 15 MG/DL (9-23); CALCIUM LEVEL 9.4 MG/DL (8.5-10.1); CARBON DIOXIDE LEVEL 28 MMOL/L (20-31); CHLORIDE LEVEL 106 MMOL/L (98-107); CREATININE FOR GFR 0.69 MG/DL (0.55-1.30); FREE T4 1.02 NG/DL (0.89-1.76); GLOMERULAR FILTRATION RATE > 60.0 (>51); GLUCOSE, FASTING 86 MG/DL (60-100); IRON (FE) 65 UG/DL (50-170); PERCENT SATURATION 18.9 % (13.2-45.0); SODIUM LEVEL 140 MMOL/L (136-145); THYROID STIMULATING HORMONE 1.261 uIU/ML (0.55-4.78); TOTAL IRON BINDING CAPACITY 344 UG/DL (250-425)
== END ==
LOC: M SFHCCLAY 11:30
PROVIDERS: ATTEND Family Medicine
DX: G93.5 Compression of brain (principal); M79.7 Fibromyalgia; R53.82 Chronic fatigue, unspecified; J30.81 Allergic rhinitis due to animal (cat) (dog) hair and dander

== ENCOUNTER → 2022-04-14 | Outpatient (CLI) | payer OTHER | LOC: M WHC 07:37 | PROVIDERS: ATTEND Family Medicine | DX: Z12.31 Encounter for screening mammogram for malignant neoplasm of breast (principal); R92.2 Inconclusive mammogram ==

== ENCOUNTER → 2022-05-03 | Outpatient (CLI) | payer OTHER ==
[2022-05-03 17:49] LABS: BASO # 0.1 10^3/uL (0.0-0.2); BASO % 0.8 % (0.0-1.0); EOS # 0.5 10^3/uL (0.0-0.5); EOS % 7.9 % (0.0-3.0); HEMATOCRIT 41.5 % (36.0-47.0); HEMOGLOBIN 13.5 g/dl (12.0-15.5); LYMPH # 1.7 10^3/uL (1.5-5.0); LYMPH % 28.3 % (24.0-44.0); MEAN CORPUSCULAR HEMOGLOBIN 29.5 pg (27.0-33.0); MEAN CORPUSCULAR HGB CONC 32.5 g/dl (32.0-36.5); MEAN CORPUSCULAR VOLUME 90.6 fl (80.0-96.0); MONO # 0.6 10^3/uL (0.0-0.8); MONO % 10.1 % (2.0-8.0); NEUTROPHILS # 3.2 10^3/uL (1.5-8.5); NEUTROPHILS % 52.7 % (36.0-66.0); PLATELET COUNT, AUTOMATED 271 10^3/uL (150-450); RED BLOOD COUNT 4.58 10^6/uL (4.00-5.40); WHITE BLOOD COUNT 6.1 10^3/uL (4.0-10.0)
[2022-05-03 18:08] LABS: ALKALINE PHOSPHATASE 85 U/L (46-116); ALT/SGPT 37 U/L (7.0-40); AST/SGOT 26 U/L (<34); BILIRUBIN,TOTAL 0.7 MG/DL (0.3-1.2); BLOOD UREA NITROGEN 18 MG/DL (9-23); CALCIUM LEVEL 9.7 MG/DL (8.5-10.1); CARBON DIOXIDE LEVEL 29 MMOL/L (20-31); CHLORIDE LEVEL 105 MMOL/L (98-107); CREATININE FOR GFR 0.73 MG/DL (0.55-1.30); GLOMERULAR FILTRATION RATE > 60.0 (>51); GLUCOSE, FASTING 77 MG/DL (60-100); POTASSIUM SERUM 4.7 MMOL/L (3.5-5.1); SODIUM LEVEL 142 MMOL/L (136-145); TOTAL PROTEIN 7.1 G/DL (5.7-8.2); TOTAL PROTEIN 7.1 GM/DL (6.4-8.2)
[2022-05-03 18:11] LABS: VITAMIN B12 LEVEL 959 PG/ML (211-911)
[2022-05-03 18:12] LABS: TOTAL 25(OH) VITAMIN D 28.8 NG/ML (20.0-100.0)
[2022-05-03 18:24] LABS: RHEUMATOID FACTOR QUANT < 3.5 IU/ML (<14)
[2022-05-03 18:29] LABS: ERYTHROCYTE SEDIMENTATION RATE 10 mm/hr (0-30)
[2022-05-03 19:09] LABS: HEMOGLOBIN A1c 4.6 % (4.0-6.0)
== END ==
LOC: M LAB 16:30
PROVIDERS: ATTEND Psychiatry & Neurology Neurology
DX: G62.9 Polyneuropathy, unspecified (principal)

== ENCOUNTER → 2022-05-08 | Outpatient (CLI) | payer OTHER | LOC: M SLEEP 20:00 | PROVIDERS: ATTEND Physician Assistant | DX: R40.0 Somnolence (principal) ==

== ENCOUNTER → 2022-05-11 | Outpatient (CLI) | payer OTHER | LOC: M WHC 13:14 | PROVIDERS: ATTEND Family Medicine | DX: Z12.31 Encounter for screening mammogram for malignant neoplasm of breast (principal) ==

== ENCOUNTER → 2022-05-12 | Outpatient (REF) | payer OTHER | LOC: M LAB REF 12:12 | PROVIDERS: ATTEND Psychiatry & Neurology Neurology | DX: Z53.20 Procedure and treatment not carried out because of patient's decision for unspecified reasons (principal) ==

== ENCOUNTER → 2022-05-13 | Outpatient (REF) | payer OTHER | LOC: M LAB 14:17 | PROVIDERS: ATTEND Psychiatry & Neurology Neurology | DX: G60.9 Hereditary and idiopathic neuropathy, unspecified (principal) ==

== ENCOUNTER → 2022-09-07 | Outpatient (CLI) | payer OTHER ==
[~2022-09-07] MED LIST changes: +METHACHOLINE KIT INH ONE; +MONT-5 PO; -SING10TA32 PO; +TOPI-254 PO; -TOPI50TA9 PO
== END ==
LOC: M CARPUL 09:49
PROVIDERS: ATTEND Internal Medicine Pulmonary Disease
DX: R06.02 Shortness of breath (principal)
CPT/HCPCS: 94070; 95070; J7674

== ENCOUNTER → 2022-09-07 | Outpatient (CLI) | payer OTHER ==
[~2022-09-07] MED LIST changes: -METHACHOLINE KIT INH ONE
== END ==
LOC: M RAD 13:30
PROVIDERS: ATTEND Internal Medicine Pulmonary Disease
DX: R06.02 Shortness of breath (principal)

== ENCOUNTER → 2022-10-28 | Outpatient (REF) | payer OTHER | LOC: M SFHCDERM 17:39 | PROVIDERS: ATTEND Nurse Practitioner Family | DX: L85.9 Epidermal thickening, unspecified (principal) ==

== ENCOUNTER → 2022-11-08 | Outpatient (CLI) | payer OTHER ==
[2022-11-08 17:32] LABS: HEMATOCRIT 37.3 % (36.0-47.0); HEMOGLOBIN 12.5 g/dl (12.0-15.5); MEAN CORPUSCULAR HEMOGLOBIN 29.4 pg (27.0-33.0); MEAN CORPUSCULAR HGB CONC 33.5 g/dl (32.0-36.5); MEAN CORPUSCULAR VOLUME 87.8 fl (80.0-96.0); PLATELET COUNT, AUTOMATED 240 10^3/uL (150-450); RED BLOOD COUNT 4.25 10^6/uL (4.00-5.40); WHITE BLOOD COUNT 6.4 10^3/uL (4.0-10.0)
[2022-11-08 17:40] LABS: ERYTHROCYTE SEDIMENTATION RATE 7 mm/hr (0-30)
== END ==
LOC: M LAB 16:35
PROVIDERS: ATTEND Family Medicine
DX: M79.10 Myalgia, unspecified site (principal)

== ENCOUNTER → 2023-03-04 | Outpatient (CLI) | payer OTHER ==
[2023-03-04 13:59] LABS: URIC ACID 2.9 MG/DL (3.1-7.8)
[2023-03-04 14:01] LABS: C REACTIVE PROTEIN QUANTITATIV < 0.40 MG/DL (<1.0)
[2023-03-04 14:02] LABS: RHEUMATOID FACTOR QUANT < 3.5 IU/ML (<14)
[2023-03-05 13:08] LABS: ANTINUCLEAR ANTIBODIES DIRECT Negative (Negative)
== END ==
LOC: M LAB 12:53
PROVIDERS: ATTEND Physician Assistant
DX: M25.50 Pain in unspecified joint (principal)

== ENCOUNTER → 2023-04-04 | Outpatient (REF) | payer OTHER | LOC: M SFHCWAGY 13:14 | PROVIDERS: ATTEND Nurse Practitioner Family | DX: Z12.4 Encounter for screening for malignant neoplasm of cervix (principal); Z01.419 Encounter for gynecological examination (general) (routine) without abnormal findings; Z77.9 Other contact with and (suspected) exposures hazardous to health ==

== ENCOUNTER → 2023-05-06 | Outpatient (CLI) | payer OTHER ==
[~2023-05-06] MED LIST changes: +TOPI-21 PO; -TOPI-254 PO
== END ==
LOC: M RAD 16:02
PROVIDERS: ATTEND Internal Medicine Pulmonary Disease
DX: J45.40 Moderate persistent asthma, uncomplicated (principal)

== ENCOUNTER → 2023-09-16 | Outpatient (REF) | payer OTHER ==
[2023-09-16 17:42] LABS: FREE T4 1.2 NG/DL (0.89-1.76); THYROID STIMULATING HORMONE 1.345 uIU/ML (0.55-4.78)
[2023-09-16 17:55] LABS: BASO # 0.1 10^3/uL (0.0-0.2); BASO % 0.8 % (0.0-1.0); EOS # 0.2 10^3/uL (0.0-0.5); EOS % 2.5 % (0.0-3.0); HEMATOCRIT 41.2 % (36.0-47.0); HEMOGLOBIN 13.9 g/dl (12.0-15.5); LYMPH # 2.1 10^3/uL (1.5-5.0); LYMPH % 34.8 % (24.0-44.0); MEAN CORPUSCULAR HEMOGLOBIN 30.2 pg (27.0-33.0); MEAN CORPUSCULAR HGB CONC 33.7 g/dl (32.0-36.5); MEAN CORPUSCULAR VOLUME 89.6 fl (80.0-96.0); MONO # 0.6 10^3/uL (0.0-0.8); MONO % 9.1 % (2.0-8.0); NEUTROPHILS # 3.2 10^3/uL (1.5-8.5); NEUTROPHILS % 52.6 % (36.0-66.0); PLATELET COUNT, AUTOMATED 241 10^3/uL (150-450)
== END ==
LOC: M SFHCCLAY 14:46
PROVIDERS: ATTEND Family Medicine
DX: G43.009 Migraine without aura, not intractable, without status migrainosus (principal)

== ENCOUNTER → 2023-11-08 | Outpatient (CLI) | payer OTHER ==
[~2023-11-08] MED LIST changes: +BUPR-597 PO; -BUPR300T92 PO
== END ==
LOC: M WHC 12:56
PROVIDERS: ATTEND Family Medicine
DX: Z12.31 Encounter for screening mammogram for malignant neoplasm of breast (principal)

== ENCOUNTER → 2023-11-22 | Outpatient (CLI) | payer OTHER | LOC: M RAD 16:38 | PROVIDERS: ATTEND Nurse Practitioner Family | DX: R22.9 Localized swelling, mass and lump, unspecified (principal) ==

== ENCOUNTER → 2023-12-30 | Outpatient (REF) | payer OTHER ==
[2023-12-30 13:02] LABS: HEMATOCRIT 43.6 % (36.0-47.0); HEMOGLOBIN 14.5 g/dl (12.0-15.5); MEAN CORPUSCULAR HGB CONC 33.3 g/dl (32.0-36.5); MEAN CORPUSCULAR VOLUME 90.1 fl (80.0-96.0); PLATELET COUNT, AUTOMATED 227 10^3/uL (150-450); RED BLOOD COUNT 4.84 10^6/uL (4.00-5.40); WHITE BLOOD COUNT 5.3 10^3/uL (4.0-10.0)
[2023-12-30 13:29] LABS: ALBUMIN 4.2 G/DL (3.2-5.2); ALKALINE PHOSPHATASE 54 U/L (46-116); ALT/SGPT 20 U/L (7.0-40); AST/SGOT 16 U/L (<34); BILIRUBIN,TOTAL 0.8 MG/DL (0.3-1.2); BLOOD UREA NITROGEN 26 MG/DL (9-23); CALCIUM LEVEL 9.3 MG/DL (8.5-10.1); CARBON DIOXIDE LEVEL 25 MMOL/L (20-31); CHLORIDE LEVEL 111 MMOL/L (98-107); CHOLESTEROL LEVEL 189 MG/DL (<200); CHOLESTEROL RISK RATIO 4.31 (<5); CREATININE FOR GFR 0.88 MG/DL (0.55-1.30); FREE T4 1.29 NG/DL (0.89-1.76); GLOMERULAR FILTRATION RATE > 60.0 (>51); GLUCOSE, FASTING 82 MG/DL (60-100); HDL CHOLESTEROL 43.8 MG/DL (>40); MAGNESIUM LEVEL 2.2 MG/DL (1.8-2.4); NON-HDL-C 145.2 MG/DL; POTASSIUM SERUM 4.4 MMOL/L (3.5-5.1); SODIUM LEVEL 142 MMOL/L (136-145); THYROID STIMULATING HORMONE 1.837 uIU/ML (0.55-4.78); TOTAL PROTEIN 6.8 G/DL (5.7-8.2); TRIGLYCERIDES LEVEL 61 MG/DL (<150)
== END ==
LOC: M SFHCCLAY 08:10
PROVIDERS: ATTEND Family Medicine
DX: N95.1 Menopausal and female climacteric states (principal); G43.009 Migraine without aura, not intractable, without status migrainosus; R53.82 Chronic fatigue, unspecified; E78.00 Pure hypercholesterolemia, unspecified; R09.81 Nasal congestion; J30.81 Allergic rhinitis due to animal (cat) (dog) hair and dander; J45.990 Exercise induced bronchospasm; M79.7 Fibromyalgia

== ENCOUNTER 2024-05-22 11:23 | Inpatient (IN) | payer OTHER ==
[~2024-05-22] VITALS: Ht 162.6 cm; Wt 69.0 kg
[2024-05-22] MEDS ORDERED: CEPH500C PO (11:45)
[2024-05-22] MEDS ORDERED: TIRZ2.5P3 SQ (11:47)
[2024-05-22 12:27] LABS: BASO % 0.5 % (0.0-1.0); EOS # 0.2 10^3/uL (0.0-0.5); EOS % 2.5 % (0.0-3.0); HEMATOCRIT 38.6 % (36.0-47.0); HEMOGLOBIN 13.1 g/dl (12.0-15.5); LYMPH % 11.4 % (24.0-44.0); MEAN CORPUSCULAR HEMOGLOBIN 29.3 pg (27.0-33.0); MEAN CORPUSCULAR HGB CONC 33.9 g/dl (32.0-36.5); MEAN CORPUSCULAR VOLUME 86.4 fl (80.0-96.0); MONO # 0.5 10^3/uL (0.0-0.8); MONO % 5.8 % (2.0-8.0); NEUTROPHILS % 79.6 % (36.0-66.0); PLATELET COUNT, AUTOMATED 212 10^3/uL (150-450); RED BLOOD COUNT 4.47 10^6/uL (4.00-5.40); WHITE BLOOD COUNT 8.8 10^3/uL (4.0-10.0)
[2024-05-22 12:55] LABS: LIPASE 28 U/L (12-53)
[2024-05-22 12:57] LABS: ALBUMIN 3.7 G/DL (3.2-5.2); ALKALINE PHOSPHATASE 163 U/L (35-104); ALT/SGPT 200 U/L (7.0-40); AST/SGOT 427 U/L (<34); BILIRUBIN,DIRECT 0.4 MG/DL (<0.4); BILIRUBIN,TOTAL 1.1 MG/DL (0.3-1.2); BLOOD UREA NITROGEN 20 MG/DL (9-23); CALCIUM LEVEL 9.1 MG/DL (8.5-10.1); CARBON DIOXIDE LEVEL 25 MMOL/L (20-31); CHLORIDE LEVEL 104 MMOL/L (98-107); CREATININE FOR GFR 0.69 MG/DL (0.55-1.30); GLOMERULAR FILTRATION RATE > 60.0 (>51); GLUCOSE, FASTING 88 MG/DL (60-100); SODIUM LEVEL 136 MMOL/L (136-145); TOTAL PROTEIN 6.6 G/DL (5.7-8.2)
[2024-05-22 13:00] LABS: CK-MB VALUE MASS < 1.0 NG/ML (<3.6)
[2024-05-22] MEDS ORDERED: ISOVUE-370 76% 100ML VIAL As Ordered ONE (13:06)
[2024-05-22 13:08] LABS: CPK CREATINE PHOSPHOKINASE 65 U/L (34-145); MB/CK RELATIVE INDEX 1.53 (< OR =4)
[2024-05-22] MEDS: PANTOPRAZOLE 40MG VIAL IV ONE (13:12)
[2024-05-22] MEDS: LIDOCAINE VISCOUS 2% SOLN 15ML UDC PO ONE (13:12)
[2024-05-22] MEDS: MAALOX 30 ML SUSP *UDC PO ONE (13:12)
[2024-05-22 13:51] LABS: CK-MB VALUE MASS < 1.0 NG/ML (<3.6)
[2024-05-22 13:53] LABS: CPK CREATINE PHOSPHOKINASE 63 U/L (34-145); MB/CK RELATIVE INDEX 1.58 (< OR =4)
[2024-05-22] MEDS ORDERED: oxyCODONE 5MG TAB PO PRN (14:30)
[2024-05-22] MEDS ORDERED: oxyCODONE 10 MG CR TAB PO ONE (14:30)
[2024-05-22] MEDS ORDERED: SENOKOT S TAB PO PRN (14:35)
[2024-05-22] MEDS ORDERED: MOM 30ML SUSPENSION UDC PO PRN (14:35)
[2024-05-22] MEDS ORDERED: NALOXONE INJ 0.4MG/1ML VIAL IV PRN (14:35)
[2024-05-22] MEDS: HYDROMORPHONE HCL 0.5 MG/ 0.5 ML SYRINGE IV ONE (15:00)
[2024-05-22 15:47] LABS: INR 0.94; PARTIAL THROMBOPLASTIN TIME 24.9 SECONDS (24.8-34.2); PROTHROMBIN TIME 12.9 SECONDS (12.5-14.5)
[2024-05-22 15:58] LABS: CK-MB VALUE MASS < 1.0 NG/ML (<3.6)
[2024-05-22 15:59] LABS: CHOLESTEROL LEVEL 178 MG/DL (<200); CHOLESTEROL RISK RATIO 3.64 (<5); CPK CREATINE PHOSPHOKINASE 62 U/L (34-145); HDL CHOLESTEROL 48.8 MG/DL (>40); LDL CHOLESTEROL 117.8 MG/DL (<100); MB/CK RELATIVE INDEX 1.61 (< OR =4); NON-HDL-C 129.2 MG/DL; TRIGLYCERIDES LEVEL 57 MG/DL (<150)
[2024-05-22 16:00] VITALS: BP 144/87; TEMP 97.5; O2SAT 95
[2024-05-22 16:00] LABS: MONO REFLEX EBV VCA IgM NEGATIVE (NEGATIVE)
[2024-05-22] MEDS ORDERED: PRENTAB45 PO (16:04)
[2024-05-22] MEDS ORDERED: FAMO1TAB11 PO (16:04)
[2024-05-22] MEDS ORDERED: HOME MED LIST COMPLETE! XX SCH (16:05)
[2024-05-22] MEDS: KETOROLAC 30 MG/ML 1ML VIAL IV ONE (16:14)
[2024-05-22] MEDS: NS (Normal Saline) 0.9% 1,000 ML IV SCH (16:14)
[2024-05-22 16:20] LABS: HEPATITIS B SURFACE ANTIGEN NEGATIVE (NEGATIVE)
[2024-05-22 16:39] LABS: HEPATITIS C VIRUS ABY INDEX < 0.02 INDEX (<0.8)
[2024-05-22 16:40] LABS: HEPATITIS B CORE ANTIBODY IGM NEGATIVE (NEGATIVE)
[2024-05-22] MEDS: oxyCODONE 5MG TAB PO ONE (17:45)
[2024-05-22] MEDS: SUCRALFATE 1 GM TAB PO SCH (17:53)
[2024-05-22 18:00] LABS: KETONE, URINE AUTO RFX TRACE mg/dL (NEGATIVE); LEUKOCYTE ESTERASE UR AUTO RFX NEGATIVE (NEGATIVE)
[2024-05-22] MEDS ORDERED: NAPROXEN 250 MG TAB PO PRN (19:00)
[2024-05-22] MEDS ORDERED: PILL CUTTER 1 EACH XX PRN (19:15)
[2024-05-22 20:00] VITALS: BP 129/68; TEMP 97.7; O2SAT 98
[2024-05-22] MEDS: TOPIRAMATE (TopAMAX) 25 MG TAB PO SCH (20:01)
[2024-05-22] MEDS: FAMOTIDINE 20 MG TAB PO SCH (20:02)
[2024-05-22] MEDS: CEPHALEXIN 500 MG CAP PO ONE (20:02)
[2024-05-22] MEDS: PANTOPRAZOLE 40MG TAB (PROTONIX) PO SCH (20:02)
[2024-05-22] MEDS: LOSARTAN 25 MG TAB PO SCH (20:03)
[2024-05-23 04:00] VITALS: BP 109/59; TEMP 97.5; O2SAT 98
[2024-05-23 06:38] LABS: HEMATOCRIT 36.7 % (36.0-47.0); HEMOGLOBIN 12.3 g/dl (12.0-15.5); MEAN CORPUSCULAR HEMOGLOBIN 30.1 pg (27.0-33.0); MEAN CORPUSCULAR HGB CONC 33.5 g/dl (32.0-36.5); PLATELET COUNT, AUTOMATED 205 10^3/uL (150-450); RED BLOOD COUNT 4.08 10^6/uL (4.00-5.40); WHITE BLOOD COUNT 3.6 10^3/uL (4.0-10.0)
[2024-05-23 07:02] LABS: ALKALINE PHOSPHATASE 196 U/L (35-104); ALT/SGPT 404 U/L (7.0-40); AST/SGOT 393 U/L (<34); BILIRUBIN,TOTAL 0.8 MG/DL (0.3-1.2); BLOOD UREA NITROGEN 18 MG/DL (9-23); CALCIUM LEVEL 8.6 MG/DL (8.5-10.1); CARBON DIOXIDE LEVEL 26 MMOL/L (20-31); CHLORIDE LEVEL 112 MMOL/L (98-107); CREATININE FOR GFR 0.71 MG/DL (0.55-1.30); GLOMERULAR FILTRATION RATE > 60.0 (>51); GLUCOSE, FASTING 79 MG/DL (60-100); POTASSIUM SERUM 4.3 MMOL/L (3.5-5.1); SODIUM LEVEL 143 MMOL/L (136-145); TOTAL PROTEIN 5.7 G/DL (5.7-8.2)
[2024-05-23] MEDS: PRENATAL VITAMINS CHEWABLE TABLET PO SCH (08:54)
[2024-05-23] MEDS ORDERED: OMEPRAZOLE 20MG CAP PO SCH (09:00)
[2024-05-23 12:00] VITALS: BP 127/68; TEMP 97.7; O2SAT 100
[2024-05-23 20:17] VITALS: BP 127/68; TEMP 97.5; O2SAT 99
[2024-05-23 20:18] VITALS: BP 127/68
[2024-05-24 04:10] VITALS: BP 102/65; TEMP 97.2; O2SAT 99
[2024-05-24 07:21] LABS: HEMATOCRIT 39.3 % (36.0-47.0); MEAN CORPUSCULAR HEMOGLOBIN 29.9 pg (27.0-33.0); MEAN CORPUSCULAR HGB CONC 33.1 g/dl (32.0-36.5); MEAN CORPUSCULAR VOLUME 90.3 fl (80.0-96.0); PLATELET COUNT, AUTOMATED 224 10^3/uL (150-450); RED BLOOD COUNT 4.35 10^6/uL (4.00-5.40)
[2024-05-24 07:49] LABS: ALBUMIN 3.2 G/DL (3.2-5.2); ALKALINE PHOSPHATASE 183 U/L (35-104); ALT/SGPT 282 U/L (7.0-40); AST/SGOT 154 U/L (<34); BILIRUBIN,TOTAL 0.5 MG/DL (0.3-1.2); BLOOD UREA NITROGEN 19 MG/DL (9-23); CALCIUM LEVEL 9.3 MG/DL (8.5-10.1); CARBON DIOXIDE LEVEL 25 MMOL/L (20-31); CHLORIDE LEVEL 110 MMOL/L (98-107); CREATININE FOR GFR 0.73 MG/DL (0.55-1.30); GLOMERULAR FILTRATION RATE > 60.0 (>51); GLUCOSE, FASTING 86 MG/DL (60-100); POTASSIUM SERUM 4.6 MMOL/L (3.5-5.1); SODIUM LEVEL 143 MMOL/L (136-145); TOTAL PROTEIN 5.8 G/DL (5.7-8.2)
[2024-05-24] MEDS ORDERED: PROT1TAB2 PO (08:08)
[2024-05-24] MEDS ORDERED: CARA1TAB6 PO (08:08)
[2024-05-25 14:08] LABS: CYTOMEGALOVIRUS ANTIBODY IGG < 0.60 U/mL (<0.60); CYTOMEGALOVIRUS IgM ANTIBODY < 30.00 AU/mL (<30.00)
[2024-05-25 14:37] LABS: ANTI-MITOCHONDRIAL ANTIBODY NEGATIVE (NEGATIVE)
[2024-05-25 14:48] LABS: ANA PATTERN Cytoplasmic (NEGATIVE); ANA SCREEN, IFA POSITIVE (NEGATIVE)
[2024-05-26 13:48] LABS: CMV QUANT DNA PCR (PLASMA) Not Detected; CMV SOURCE Whole Blood; log10 CMV QN DNA P1 Not Detected log IU/mL
[2024-05-27 00:26] LABS: ANTI-SMOOTH MUSCLE ANTIBODY < 20 U (<20)
== END 2024-05-24 11:00 | disposition home or self-care (01) ==
LOC: M ED 11:23 → M ED INP 14:27 → M MS5PR 15:51
PROVIDERS: ADMIT General Practice; ATTEND General Practice
DX: K71.0 Toxic liver disease with cholestasis (principal); I10 Essential (primary) hypertension; R74.01 Elevation of levels of liver transaminase levels; E78.2 Mixed hyperlipidemia; G43.709 Chronic migraine without aura, not intractable, without status migrainosus; M19.90 Unspecified osteoarthritis, unspecified site; R05.3 Chronic cough; R10.13 Epigastric pain; Z87.891 Personal history of nicotine dependence; Z90.49 Acquired absence of other specified parts of digestive tract; Z79.899 Other long term (current) drug therapy; Z86.16 Personal history of COVID-19; T50.995A Adverse effect of other drugs, medicaments and biological substances, initial encounter

== ENCOUNTER → 2024-05-29 | Outpatient (REF) | payer OTHER ==
[~2024-05-29] MED LIST changes: +CEPH500C PO; +FAMO1TAB11 PO; +PRENTAB45 PO; +PROT1TAB2 PO; +TIRZ2.5P3 SQ
== END ==
LOC: M SFHCCLAY 15:55
PROVIDERS: ATTEND Physician Assistant
DX: K71.9 Toxic liver disease, unspecified (principal)

== ENCOUNTER → 2024-05-30 | Outpatient (CLI) | payer OTHER ==
[2024-05-30 17:56] LABS: ALBUMIN 3.9 G/DL (3.2-5.2); ALKALINE PHOSPHATASE 105 U/L (35-104); ALT/SGPT 75 U/L (7.0-40); AST/SGOT 26 U/L (<34); BILIRUBIN,TOTAL 0.6 MG/DL (0.3-1.2); BLOOD UREA NITROGEN 20 MG/DL (9-23); CALCIUM LEVEL 9.7 MG/DL (8.5-10.1); CARBON DIOXIDE LEVEL 28 MMOL/L (20-31); CHLORIDE LEVEL 108 MMOL/L (98-107); CREATININE FOR GFR 0.74 MG/DL (0.55-1.30); GLOMERULAR FILTRATION RATE > 60.0 (>51); GLUCOSE, FASTING 86 MG/DL (60-100); POTASSIUM SERUM 3.9 MMOL/L (3.5-5.1); SODIUM LEVEL 142 MMOL/L (136-145); TOTAL PROTEIN 6.7 G/DL (5.7-8.2)
== END ==
LOC: M LAB 16:38
PROVIDERS: ATTEND Physician Assistant
DX: K71.9 Toxic liver disease, unspecified (principal)

== ENCOUNTER → 2024-06-13 | Outpatient (CLI) | payer OTHER | LOC: M CLY 14:43 | PROVIDERS: ATTEND Physician Assistant | DX: S69.92XA Unspecified injury of left wrist, hand and finger(s), initial encounter (principal); W18.30XA Fall on same level, unspecified, initial encounter; Y92.009 Unspecified place in unspecified non-institutional (private) residence as the place of occurrence of the external cause ==

== ENCOUNTER → 2024-06-29 | Outpatient (CLI) | payer OTHER | LOC: M CLY 07:43 | PROVIDERS: ATTEND Physician Assistant | DX: R05.1 Acute cough (principal) ==

== ENCOUNTER → 2024-07-11 | Outpatient (REF) | payer OTHER | LOC: M LAB REF 11:14 | PROVIDERS: ATTEND Physician Assistant | DX: J02.9 Acute pharyngitis, unspecified (principal) ==

== ENCOUNTER → 2024-07-12 | Outpatient (REF) | payer OTHER ==
[~2024-07-12] MED LIST changes: -BUPR-597 PO; +BUPR-766 PO; +TOPI-256; -TOPI25TA10
[2024-07-12 13:10] LABS: ALBUMIN 3.5 G/DL (3.2-5.2); ALKALINE PHOSPHATASE 79 U/L (35-104); ALT/SGPT 21 U/L (7.0-40); AST/SGOT 15 U/L (<34); BILIRUBIN,TOTAL 0.8 MG/DL (0.3-1.2); BLOOD UREA NITROGEN 18 MG/DL (9-23); CALCIUM LEVEL 9.5 MG/DL (8.5-10.1); CARBON DIOXIDE LEVEL 29 MMOL/L (20-31); CHLORIDE LEVEL 108 MMOL/L (98-107); CHOLESTEROL LEVEL 231 MG/DL (<200); CHOLESTEROL RISK RATIO 3.46 (<5); CREATININE FOR GFR 0.76 MG/DL (0.55-1.30); GLOMERULAR FILTRATION RATE > 60.0 (>51); GLUCOSE, FASTING 86 MG/DL (60-100); HDL CHOLESTEROL 66.7 MG/DL (>40); LDL CHOLESTEROL 149.5 MG/DL (<100); NON-HDL-C 164.3 MG/DL; POTASSIUM SERUM 4.5 MMOL/L (3.5-5.1); SODIUM LEVEL 145 MMOL/L (136-145); TOTAL PROTEIN 6.9 G/DL (5.7-8.2); TRIGLYCERIDES LEVEL 74 MG/DL (<150)
[2024-07-12 13:23] LABS: HEMOGLOBIN A1c 4.7 % (4.0-6.0)
== END ==
LOC: M SFHCCLAY 07:14
PROVIDERS: ATTEND Physician Assistant
DX: K71.9 Toxic liver disease, unspecified (principal); E78.2 Mixed hyperlipidemia

== ENCOUNTER → 2024-12-20 | Outpatient (RCR) | payer OTHER | LOC: M PT 11-26 15:00 | PROVIDERS: ATTEND Physician Assistant | DX: I89.0 Lymphedema, not elsewhere classified (principal) ==

== ENCOUNTER 2024-12-28 15:00 | Outpatient (RCR) | payer OTHER | END 2025-01-20 | LOC: M PT 15:00 | PROVIDERS: ATTEND Physician Assistant | DX: I89.0 Lymphedema, not elsewhere classified (principal) ==

== ENCOUNTER → 2025-02-26 | Outpatient (CLI) | payer OTHER | LOC: M CLY 13:29 | PROVIDERS: ATTEND Physician Assistant | DX: M54.42 Lumbago with sciatica, left side (principal) ==

== ENCOUNTER → 2025-03-07 | Outpatient (CLI) | payer OTHER ==
[2025-03-07 12:54] LABS: BASO # 0.0 10^3/uL (0.0-0.2); BASO % 0.5 % (0.0-1.0); EOS # 0.4 10^3/uL (0.0-0.5); EOS % 6.1 % (0.0-3.0); LYMPH # 2.7 10^3/uL (1.5-5.0); LYMPH % 42.5 % (24.0-44.0); MONO # 0.5 10^3/uL (0.0-0.8); MONO % 7.3 % (2.0-8.0); NEUTROPHILS # 2.8 10^3/uL (1.5-8.5); NEUTROPHILS % 43.3 % (36.0-66.0); PLATELET COUNT, AUTOMATED 251 10^3/uL (150-450)
[2025-03-07 13:06] LABS: ERYTHROCYTE SEDIMENTATION RATE 18 mm/hr (0-30)
[2025-03-07 13:20] LABS: ALT/SGPT 24 U/L (7.0-40); AST/SGOT 24 U/L (<34); CALCIUM LEVEL 9.6 MG/DL (8.5-10.1); CARBON DIOXIDE LEVEL 25 MMOL/L (20-31); CHLORIDE LEVEL 109 MMOL/L (98-107); CREATININE FOR GFR 0.66 MG/DL (0.55-1.30); GLOMERULAR FILTRATION RATE > 90.0 (>51); POTASSIUM SERUM 4.1 MMOL/L (3.5-5.1); SODIUM LEVEL 143 MMOL/L (136-145)
[2025-03-07 13:22] LABS: RHEUMATOID FACTOR QUANT < 3.5 IU/ML (<14)
[2025-03-07 13:23] LABS: TOTAL 25(OH) VITAMIN D 48.9 NG/ML (20.0-100.0)
== END ==
LOC: M LAB 12:26
PROVIDERS: ATTEND Psychiatry & Neurology Neurology
DX: R51.9 Headache, unspecified (principal)

== ENCOUNTER 2025-03-20 06:53 | Emergency (ER) | payer OTHER ==
[~2025-03-20] VITALS: Ht 162.6 cm; Wt 74.9 kg
[2025-03-20] MEDS ORDERED: CEPH500C PO (07:58)
[2025-03-20 08:11] VITALS: BP 122/71; TEMP 97; O2SAT 100
== END 2025-03-20 08:15 | disposition home or self-care (01) ==
LOC: M ED 06:53
DX: S60.351A Superficial foreign body of right thumb, initial encounter (principal); Y92.9 Unspecified place or not applicable; Y93.9 Activity, unspecified; Y99.9 Unspecified external cause status; Z88.6 Allergy status to analgesic agent; Z79.2 Long term (current) use of antibiotics; Z79.899 Other long term (current) drug therapy